=== PATIENT | male | born 1945 | race Caucasian/White ===

== ENCOUNTER 2018-11-21 09:00 | Inpatient (IN) | payer OTHER ==
[~2018-11-21] VITALS: Ht 177.8 cm; Wt 99.4 kg
[~2018-11-21 09:00] MED LIST: LISI5 PO; SILENOR6 MG PO
[2018-11-21] MEDS ORDERED: **INCOMPLETE MED REC (13:09)
[2018-11-21] MEDS ORDERED: SYNTHROID112 MCG PO (13:23)
[2018-11-21] MEDS ORDERED: AMLO5 PO (13:23)
[2018-11-21] MEDS ORDERED: Aspirin EC81 MG PO (13:24)
[2018-11-21] MEDS ORDERED: Omeprazole20 M1 PO (13:25)
[2018-11-21] MEDS ORDERED: ZOLP12.5 PO (13:26)
[2018-11-21] MEDS ORDERED: TRAM50 PO (13:27)
[2018-11-21] MEDS ORDERED: Fish Oil 10001000 MG PO (13:27)
[2018-11-21] MEDS ORDERED: CHOL10002 PO (13:28)
[2018-11-21] MEDS ORDERED: POTASSIUM GLUC500 MG PO (13:29)
[2018-11-21] MEDS ORDERED: LOSA25 PO (13:34)
--- NOTE | 2018-11-21 19:19 | NUR ---
END OF SHIFT PT HAS HAD NO CHANGES TO THE ASSESSMENT, VSS, PT IN NO PAIN PT ABLE TO AMBULATE WITH SOME SOB, PT EDUCATED ON THE NEED TO CALL THE RN FOR ASSISSTANCE, PT IS TO BE NPO AT MIDNIGHT
[2018-11-22 02:50] LABS: BASOPHILS ABSOLUTE AUTO 0.04 K/mm3 (0.00-0.23); BASOPHILS PERCENT AUTO 1 % (0-2); EOSINOPHILS ABSOLUTE AUTO 0.11 K/mm3 (0.00-0.68); EOSINOPHILS PERCENT AUTO 1 % (0-6); Hematocrit 38.7 % (37.0-53.0); Hemoglobin 12.9 g/dL (13.5-17.5); IMMATURE GRAN ABSOLUTE AUTO 0.02 K/mm3 (0.00-0.10); IMMATURE GRAN PERCENT AUTO 0 % (0-1); LYMPHOCYTES ABSOLUTE AUTO 1.64 K/mm3 (0.84-5.20); LYMPHOCYTES PERCENT AUTO 21 % (21-46); MONOCYTES ABSOLUTE AUTO 0.79 K/mm3 (0.16-1.47); MONOCYTES PERCENT AUTO 10 % (4-13); Mean Corpuscular HGB 34.3 pg (26.0-34.0); Mean Corpuscular HGB Conc 33.3 g/dL (31.5-36.5); Mean Corpuscular Volume 103 fL (80-100); Mean Platelet Volume 10.1 fL (9.1-12.4); NEUTROPHILS ABSOLUTE AUTO 5.23 K/mm3 (1.96-9.15); NEUTROPHILS PERCENT AUTO 67 % (41-73); Platelet Count 165 K/mm3 (150-400); RDW Coefficient Variation 13.8 % (11.7-14.2); RDW Standard Deviation 51.9 fL (35.1-46.3); Red Blood Cell Count 3.76 M/mm3 (4.30-5.90); White Blood Cell Count 7.83 K/mm3 (4.00-11.30)
[2018-11-22 03:22] LABS: Albumin, Blood 2.9 g/dL (3.4-5.0); Albumin/Globulin Ratio 0.9 (0.8-1.8); Bilirubin, Total 1.3 mg/dL (0.1-1.0); Bun/Creatinine Ratio 9.5 (12.0-20.0); Calcium, Blood 8.2 mg/dL (8.5-10.1); Creatine Kinase MB 2.4 ng/mL (0.0-3.6); Creatine Kinase MB Index 2.5 (0.0-4.0); Creatinine, Blood 1.37 mg/dL (0.60-1.20); Globulin, Blood 3.1 g/dL (2.2-4.0); Magnesium, Blood 1.8 mg/dL (1.6-2.4); Potassium, Blood 3.3 mmol/L (3.5-5.5); Troponin I 0.255 ng/mL (0.000-0.040)
--- NOTE | 2018-11-22 05:33 | NUR ---
SHIFT SUMMARY PATIENT PLEASENT AND COOPERATIVE THROUGHOUT THE NIGHT WITH NO COMPLAINTS OF PAIN OR DISCOMFORT. PATIENT APPEARED TO SLEEP WELL THROUGHOUT THE NIGHT. PATIENT STATED THAT HE FEELS HE SLEPT, "REALLY GOOD" LAST NIGHT. PATIENT USED HIS HOME CPAP THROUGHOUT THE NIGHT, CONTINUOUS BIOX IN PLACE THROUGHOUT THE NIGHT. PATIENT CONTINUES TO USE 2L VIA N/C. PATIENT ABLE TO AMBULATE WELL INTO THE BATHROOM WITH SBA. WILL CONTINUE TO MONITOR PATIENT AND REPORT TO ONCOMING RN.
--- NOTE | 2018-11-22 14:27 | NUR ---
Spiritual care visit conducted. Patient was sitting on a chair in his room and alert when I entered the room. I introduced myself and patient welcomed me in. Patient told me about his upcoming surgery and his axiousness about it. While we were talking patient's , Zora, entered the room. Patient then annouced that there were a few tasks that he needed to complete before the surgery and so I asked permission to pray with patient and Zora. With an overwhelming "Yes," I proceeded to pray. Patient and spouse expressed much gratitude as I left the room.
--- NOTE | 2018-11-22 16:25 | NUR ---
PER DR.ISTRATE SARMIENTO TO TURN IV FLUID DOWN TO 50 ML/HR.
--- NOTE | 2018-11-22 17:44 | NUR ---
NOTIFIED PATIENT HEART RATE HAS BEEN 90-110 AND DTSTALIC 80'S TO 102. PATIENT ANXIOUS. ORDERED LABETOLOL 10 MY IV ONCE.
--- NOTE | 2018-11-22 18:45 | NUR ---
PATIENT BACK IN ROOM AROUND 1605. AWARE NEEDED TO LIE FLAT. IV DECREASED TO 50ML/HR PER . URINAL PLACED BETWEEN LEGS IN CASE HAD TO USE. AT 1815 PATIENT HEAD OF BED AT ABOUT 45 DEGREES AND TOLERATED WELL. ALERT AND ORIENTED. ON 2 LPM OXYGEN VIA N/C. HAS OWN CPAP. DENIES ANY PAIN. BED IN LOW POSITION. CALL LIGHT WITHIN REACH. WILL CONTINUE TO MONITOR.
--- NOTE | 2018-11-22 18:49 | NUR ---
PATIENT GRANTS PERMISSION FOR STUDENT NURSE RAH RUIZ TO PROVIDE CARE ON 11/22/18.
--- NOTE | 2018-11-22 18:55 | NUR ---
PATIENT GRANTS PERMISSION FOR STUDENT NURSE RAH RUIZ TO PROVIDE CARE ON 11/22/18.
[2018-11-23 04:35] LABS: Alanine Aminotransfer (ALT/SGP 20 U/L (12-78); Albumin, Blood 2.9 g/dL (3.4-5.0); Albumin/Globulin Ratio 0.9 (0.8-1.8); Alk Phos 74 U/L (50-136); Anion Gap 10 mmol/L (6-16); Aspartate Aminotrans (AST/SGOT 16 U/L (12-37); Bilirubin, Total 1.2 mg/dL (0.1-1.0); Blood Urea Nitrogen 11 mg/dL (8-24); CO2, Blood 23 mmol/L (21-32); Calcium, Blood 8.2 mg/dL (8.5-10.1); Chloride, Blood 107 mmol/L (98-108); Creatinine, Blood 1.22 mg/dL (0.60-1.20); Globulin, Blood 3.1 g/dL (2.2-4.0); Glomerular Filtration Rate >60 (60-); Glucose, Blood 101 mg/dL (70-99); Potassium, Blood 3.5 mmol/L (3.5-5.5); Sodium, Blood 140 mmol/L (136-145); Troponin I 0.143 ng/mL (0.000-0.040)
--- NOTE | 2018-11-23 07:38 | NUR ---
SHIFT SUMMARY PATIENT PLEASENT AND COOPERATIVE THROUGHOUT THE NIGHT. PATIENT APPEARED TO SLEEP WELL THROUGHOUT MOST OF THE NIGHT. HOME CPAP IN PLACE. PATIENT REFUSED THE CONTINUOUS BIOX, REFUSAL FORM SIGNED AND IN CHART. PATIENT'S RIGHT GROIN SITE CONTINUES TO HAVE NO SIGNS OF BLEEDING OR HEMATOMA FORMATION. IV FLUIDS RUNNING PER ORDERS. VITAL SIGNS CHARTED. REPORT GIVEN TO ONCOMING RN.
--- NOTE | 2018-11-23 08:00 | NUR ---
pt up to shower, he is doing ok per pt. no complaints. a/ox3, pleasant and cooperative with care, follows commands well, denies pain, or sob, lungs are clear in upper hernandez, dim in bases, resp even and unlabored, is on r/a, no cough noted, hrr, tele in place running st with pvc's, 2+ edema noted to b/l le, ppp+1, cap refill <3sec, vs stable, afebrile, iv site is clear and patent, btx4, abd round soft nontender, voids without diff, skin has cath site to right groin, site is clear and soft with dressing intact, scarlett yepeza, call light in reach.
--- NOTE | 2018-11-23 12:40 | NUR ---
pt has visitor in room, he is having a conversation with him will be going down for ct of his chest abd pelvis this afternoon. call light in reach.
--- NOTE | 2018-11-23 14:01 | NUR ---
Spiritual care visit conducted. Patient was sitting up in bed and alert when I entered the room. Patient is known to me from prior visits. Patient shared about his upcoming scans that ron help determine if his recent surgery was successful. Patient shared his concerns but mentioned that he was hopeful. Patient shared about his esther, his family and and his cuurent interests. I listened empathically, I reinforced helpful attitudes and practices and normalized his experience. Patient responded well to all interventions and expressed gratitude for my time and care.
--- NOTE | 2018-11-23 18:49 | NUR ---
PT HAS HAD AN UNEVENTFUL DAY, SHOWER THIS AM, NO ACUTE CHANGES, HE THOUGHT HE MIGHT GO HOME TODAY, BUT DR. TYLER SAID ONE MORE DAY. PT OK WITH THIS. CALL LIGHT IN REACH.
[2018-11-24 05:10] LABS: BASOPHILS ABSOLUTE AUTO 0.03 K/mm3 (0.00-0.23); BASOPHILS PERCENT AUTO 1 % (0-2); EOSINOPHILS ABSOLUTE AUTO 0.13 K/mm3 (0.00-0.68); EOSINOPHILS PERCENT AUTO 2 % (0-6); Hematocrit 41.7 % (37.0-53.0); Hemoglobin 13.9 g/dL (13.5-17.5); IMMATURE GRAN ABSOLUTE AUTO 0.01 K/mm3 (0.00-0.10); IMMATURE GRAN PERCENT AUTO 0 % (0-1); LYMPHOCYTES ABSOLUTE AUTO 1.55 K/mm3 (0.84-5.20); LYMPHOCYTES PERCENT AUTO 25 % (21-46); MONOCYTES ABSOLUTE AUTO 0.59 K/mm3 (0.16-1.47); MONOCYTES PERCENT AUTO 9 % (4-13); Mean Corpuscular HGB 33.8 pg (26.0-34.0); Mean Corpuscular HGB Conc 33.3 g/dL (31.5-36.5); Mean Corpuscular Volume 102 fL (80-100); Mean Platelet Volume 10.3 fL (9.1-12.4); NEUTROPHILS ABSOLUTE AUTO 3.97 K/mm3 (1.96-9.15); NEUTROPHILS PERCENT AUTO 63 % (41-73); Platelet Count 200 K/mm3 (150-400); RDW Coefficient Variation 14.2 % (11.7-14.2); RDW Standard Deviation 51.7 fL (35.1-46.3); Red Blood Cell Count 4.11 M/mm3 (4.30-5.90); White Blood Cell Count 6.28 K/mm3 (4.00-11.30)
[2018-11-24 05:28] LABS: Albumin, Blood 3.1 g/dL (3.4-5.0); Anion Gap 11 mmol/L (6-16); Blood Urea Nitrogen 10 mg/dL (8-24); Bun/Creatinine Ratio 8.1 (12.0-20.0); CO2, Blood 25 mmol/L (21-32); Calcium, Blood 8.7 mg/dL (8.5-10.1); Chloride, Blood 105 mmol/L (98-108); Creatinine, Blood 1.24 mg/dL (0.60-1.20); Glomerular Filtration Rate >60 (60-); Glucose, Blood 93 mg/dL (70-99); Phosphorus, Blood 3.7 mg/dL (2.5-4.9); Potassium, Blood 3.5 mmol/L (3.5-5.5); Sodium, Blood 141 mmol/L (136-145)
--- NOTE | 2018-11-24 06:04 | NUR ---
SHIFT SUMMARY: PATIENT RIGHT GROIN SITE C/D/I NO SIGN OF HEMATOMA NOTED, PULSES AND SENSATION INTACT. PATIENT SLEPT WELL, VSS, NO ISSUES NOTED, CALL LIGHT WITHIN REACH AND BED LOW AND LOCKED.
--- NOTE | 2018-11-24 08:10 | NUR ---
pt up to shower this am, sitting on side of bed at this time, he is indep in room, a/ox3, pleasant and cooperative with care, follows commands well, denies pain or sob, lungs are clear t/o, resp even and unlabored, no cough noted, hrr, tele in place running sr per monitor, see strip, trace edema noted to right le, 1+ to left le, ppp+1, cap refill <3sec, vs stable, afebrile, iv sites are clear and patent, btx4, abd flat soft nontender, reports reg bm's and voids without diff, skin has cath site to right groin, is soft and clear, occlusive dressing in place, maew, gait noted to be steady, kesha, call light in reach.
[2018-11-24] MEDS ORDERED: FURO20 PO (11:03)
[2018-11-24] MEDS ORDERED: METO5A PO (11:03)
[2018-11-24] MEDS ORDERED: XARELTO15 MG PO ×2 (11:04→11:32)
--- NOTE | 2018-11-24 11:54 | NUR ---
pt has been discharged to home, called in new medications to [facility], both iv's were removed intact, went over all discharge instructions with him, he verbalized understanding. visitors in room at this time, his is on her way to pick him up. he knows to put on his call light when he is ready to go.
--- NOTE | 2018-11-24 12:31 | NUR ---
pt left via wheelchair with proof coins inspector in attendence, his is here to transport him home, he took all his belongings with him.
== END 2018-11-24 12:21 | disposition home or self-care (01) | DRG 252 ==
LOC: ER 09:00 → PCU 12:30
PROVIDERS: ADMIT Family Medicine
PROC: 06H03DZ Insertion of Intraluminal Device into Inferior Vena Cava, Percutaneous Approach (ICD-10-PCS; principal; 2018-11-22)
DX: I82.402 Acute embolism and thrombosis of unspecified deep veins of left lower extremity (principal); I26.09 Other pulmonary embolism with acute cor pulmonale; N17.9 Acute kidney failure, unspecified; E87.1 Hypo-osmolality and hyponatremia; K21.9 Gastro-esophageal reflux disease without esophagitis; Z86.718 Personal history of other venous thrombosis and embolism; Z79.01 Long term (current) use of anticoagulants; I10 Essential (primary) hypertension; E87.6 Hypokalemia; E03.9 Hypothyroidism, unspecified; G47.00 Insomnia, unspecified; Z85.820 Personal history of malignant melanoma of skin
CPT/HCPCS: 36415; 37191; 71260; 74177; 80053; 80069; 82550; 82553; 83735; 83880; 84443; 84484; 85025; 93005; 93010; 93306; 93970; 94762; 96372-59; 99152; 99153; 99285-25; C1769; C1880; J1644; J1650; J2250; J3010; J3480; J7030; J7040; Q9967

== ENCOUNTER 2019-02-08 02:19 | Day surgery (SDC) | payer OTHER ==
[~2019-02-08] VITALS: Ht 177.8 cm; Wt 97.7 kg
[~2019-02-08 02:19] MED LIST changes: +**INCOMPLETE MED REC; +AMLO5 PO; +Aspirin EC81 MG PO; +CHOL10002 PO; +FURO20 PO; +Fish Oil 10001000 MG PO; +LOSA25 PO; +METO5A PO; +Omeprazole20 M1 PO; +POTASSIUM GLUC500 MG PO; +SYNTHROID112 MCG PO; +TRAM50 PO; +XARELTO15 MG PO; +ZOLP12.5 PO
--- NOTE | 2019-02-08 15:05 | NUR ---
DISCHARGE PT REMAINED A&OX3 AND DENIED ANY PAIN DURING RECOVERY. IV DC'D WITH CANULA IN TACT. R JUGULAR SITE REMAINS CDI-NO HEMATOMA NOTED-JENNIFER PATCH AND TEGADERM IN PLACE. PT AMBULATED TO RESTROOM AND DRESSED SELF INDEPENDANTLY. DISCHARGE EDUCATION GIVEN BY DENILSON Lopez RN. PT STATED THE UNDERSTANDING OF THE DISCHARGE EDUCATION GIVEN AND DENIED ANY QUESTIONS AT THIS TIME. PT WHEELED OUT BY THIS NURSE.
== END 2019-02-08 15:17 | disposition home or self-care (01) ==
LOC: MHTC 02:19
DX: Z45.2 Encounter for adjustment and management of vascular access device (principal); I82.412 Acute embolism and thrombosis of left femoral vein; I82.432 Acute embolism and thrombosis of left popliteal vein; I26.99 Other pulmonary embolism without acute cor pulmonale; I10 Essential (primary) hypertension; M19.90 Unspecified osteoarthritis, unspecified site; M54.9 Dorsalgia, unspecified; G89.29 Other chronic pain; G47.33 Obstructive sleep apnea (adult) (pediatric); E78.5 Hyperlipidemia, unspecified; Z79.82 Long term (current) use of aspirin; K21.9 Gastro-esophageal reflux disease without esophagitis; Z79.899 Other long term (current) drug therapy
CPT/HCPCS: 37193; 99152; 99153; C1769; C1773; C1894; J1644; J2250; J3010; J7030; J7040; Q9967

== ENCOUNTER 2019-05-22 06:34 | Day surgery (SDC) | payer OTHER ==
[~2019-05-22] VITALS: Ht 173 cm; Wt 90.6 kg
[~2019-05-22 06:34] MED LIST changes: +ASPI81CH PO; +DONE10 PO; +HYDR1TAB94 PO
--- NOTE | 2019-05-22 08:23 | NUR ---
"DAY SURGERY RN | ADMIT VSS. A/O. Steady on feet. Belongings placed under bed. Ring placed in belongings bag, patient saw this RN place it there. Taken back to OR. No issues."
--- NOTE | 2019-05-22 10:29 | NUR ---
"DAY SURGERY RN | DISCHARGE VSS. A/O. DENIES PAIN AND NAUSEA. DISCHARGE INSTRUCTIONS AND RX GIVEN TO PATIENT. DENIES FURTHER QUESTIONS. IS RIDE HOME. IV D/C'ED WITHOUT ISSUE. PATIENT ADVISED TO RESTART [facility] PER DR. MENDIOLA ORDER. TAKEN IN WHEELCHAIR TO FRONT ENTRANCE BY VOLUNTEER. ALL BELONGINGS RETURNED TO PATIENT. NO ISSUES."
== END 2019-05-22 23:13 | disposition home or self-care (01) ==
LOC: ORSCMMR 06:34 → ORD 08:15 → ORSCMMR 23:13
PROVIDERS: Surgery
PROC: 0YU60JZ Supplement Left Inguinal Region with Synthetic Substitute, Open Approach (ICD-10-PCS; principal; 2019-05-22 08:15)
DX: K40.90 Unilateral inguinal hernia, without obstruction or gangrene, not specified as recurrent (principal); I10 Essential (primary) hypertension; Z79.899 Other long term (current) drug therapy
CPT/HCPCS: C1781; J0690; J1100; J2250; J2370; J2405; J2704; J3010; J7120

== ENCOUNTER → 2019-06-20 | Outpatient (CLI) | payer OTHER ==
[2019-06-20 12:41] LABS: Adenovirus F 40/41 Not Detected (NOT DETECT); Astrovirus Not Detected (NOT DETECT); Campylobacter Sp Not Detected (NOT DETECT); Cryptosporidium Not Detected (NOT DETECT); Cyclospora Cayetanensis Not Detected (NOT DETECT); E. Coli O157 Not Detected (NOT DETECT); Entamoeba Histolytica Not Detected (NOT DETECT); Enteroaggregative E. coli-EAEC Not Detected (NOT DETECT); Enteropathogenic E. coli-EPEC Not Detected (NOT DETECT); Enterotoxigenic E. coli-ETEC Not Detected (NOT DETECT); Giardia Lamblia Not Detected (NOT DETECT); Norovirus GI/GII Not Detected (NOT DETECT); Plesiomonas Shigelloides Not Detected (NOT DETECT); Rotavirus A Not Detected (NOT DETECT); Salmonella Sp Not Detected (NOT DETECT); Sapovirus Not Detected (NOT DETECT); Shiga Toxin-prod E. coli-STEC Not Detected (NOT DETECT); Shigella/Enteroin E. coli-EIEC Not Detected (NOT DETECT); Vibrio Cholerae Not Detected (NOT DETECT); Vibrio Sp Not Detected (NOT DETECT); Yersinia Enterocolitica Not Detected (NOT DETECT)
== END | disposition home or self-care (01) ==
LOC: LAB 11:04 → LAB SHORT 11:04 → LAB FUT 06-11 07:35
PROVIDERS: Student in an Organized Health Care Education/Training Program
DX: R19.7 Diarrhea, unspecified (principal)
CPT/HCPCS: 0097U

== ENCOUNTER 2019-08-12 09:41 | Day surgery (SDC) | payer OTHER ==
[~2019-08-12] VITALS: Ht 177.8 cm; Wt 91.4 kg
[~2019-08-12 09:41] MED LIST changes: +ONDA4 PO; +SINEMET 25-1001 EACH
--- NOTE | 2019-08-12 10:30 | NUR ---
08/12/19 1030 Umm Madrigal 1 TRY HAND NO FLASH 2 TRY UPPER ARM RIGHT MISS 3 AC GOOD RIGHT 4 GOOD WRIST RIGHT
== END 2019-08-12 12:00 | disposition home or self-care (01) ==
LOC: ORSCSDS 09:41
PROVIDERS: Student in an Organized Health Care Education/Training Program
PROC: 0DB98ZX Excision of Duodenum, Via Natural or Artificial Opening Endoscopic, Diagnostic (ICD-10-PCS; principal; 2019-08-12 11:00)
PROC: 0DJD8ZZ Inspection of Lower Intestinal Tract, Via Natural or Artificial Opening Endoscopic (ICD-10-PCS; principal; 2019-08-12 11:00)
PROC: 0DB58ZX Excision of Esophagus, Via Natural or Artificial Opening Endoscopic, Diagnostic (ICD-10-PCS; principal; 2019-08-12 11:00)
PROC: 0DB68ZX Excision of Stomach, Via Natural or Artificial Opening Endoscopic, Diagnostic (ICD-10-PCS; principal; 2019-08-12 11:00)
DX: K62.5 Hemorrhage of anus and rectum (principal); R19.7 Diarrhea, unspecified; Z86.010 Personal history of colon polyps; K29.80 Duodenitis without bleeding; K29.70 Gastritis, unspecified, without bleeding; K22.70 Barrett's esophagus without dysplasia; I10 Essential (primary) hypertension; G47.33 Obstructive sleep apnea (adult) (pediatric); Z79.899 Other long term (current) drug therapy; Z79.82 Long term (current) use of aspirin
CPT/HCPCS: 88305; 88312; 88342; J2704; J7120

== ENCOUNTER 2019-09-17 06:39 | Emergency (ER) | payer OTHER ==
[~2019-09-17] VITALS: Ht 177.8 cm; Wt 86.2 kg
[~2019-09-17 06:39] MED LIST changes: -ASPI81CH PO; +Aspir 8181 MG PO; -CHOL10002 PO; -SINEMET 25-1001 EACH; +Sinemet 25-1001 EACH PO; +THERA-D2000 UNIT PO; +XARELTO20 MG PO
[2019-09-17 08:36] LABS: BASOPHILS ABSOLUTE AUTO 0.03 K/mm3 (0.00-0.23); BASOPHILS PERCENT AUTO 0 % (0-2); EOSINOPHILS PERCENT AUTO 0 % (0-6); Hematocrit 38.5 % (37.0-53.0); Hemoglobin 13.1 g/dL (13.5-17.5); IMMATURE GRAN ABSOLUTE AUTO 0.01 K/mm3 (0.00-0.10); IMMATURE GRAN PERCENT AUTO 0 % (0-1); LYMPHOCYTES ABSOLUTE AUTO 1.81 K/mm3 (0.84-5.20); LYMPHOCYTES PERCENT AUTO 26 % (21-46); MONOCYTES ABSOLUTE AUTO 1.07 K/mm3 (0.16-1.47); MONOCYTES PERCENT AUTO 15 % (4-13); Mean Corpuscular HGB 35.5 pg (26.0-34.0); Mean Corpuscular Volume 104 fL (80-100); Mean Platelet Volume 10.9 fL (9.1-12.4); NEUTROPHILS ABSOLUTE AUTO 4.12 K/mm3 (1.96-9.15); NEUTROPHILS PERCENT AUTO 59 % (41-73); Platelet Count 199 K/mm3 (150-400); RDW Coefficient Variation 12.7 % (11.7-14.2); RDW Standard Deviation 49.1 fL (35.1-46.3); Red Blood Cell Count 3.69 M/mm3 (4.30-5.90); White Blood Cell Count 7.04 K/mm3 (4.00-11.30)
[2019-09-17 08:52] LABS: Alanine Aminotransfer (ALT/SGP 143 U/L (12-78); Albumin, Blood 3.5 g/dL (3.4-5.0); Albumin/Globulin Ratio 0.9 (0.8-1.8); Alk Phos 123 U/L (50-136); Anion Gap 9 mmol/L (6-16); Aspartate Aminotrans (AST/SGOT 100 U/L (12-37); Bilirubin, Total 2.5 mg/dL (0.1-1.0); Blood Urea Nitrogen 32 mg/dL (8-24); Bun/Creatinine Ratio 30.5 (12.0-20.0); CO2, Blood 29 mmol/L (21-32); Calcium, Blood 9.8 mg/dL (8.5-10.1); Chloride, Blood 98 mmol/L (98-108); Creatinine, Blood 1.05 mg/dL (0.60-1.20); Globulin, Blood 4.1 g/dL (2.2-4.0); Glomerular Filtration Rate >60 (60-); Glucose, Blood 172 mg/dL (70-99); Potassium, Blood 3.4 mmol/L (3.5-5.5); Sodium, Blood 136 mmol/L (136-145); Total Protein, Blood 7.6 g/dL (6.4-8.2); Troponin I 0.031 ng/mL (0.000-0.040)
[2019-09-17 11:00] LABS: Source, Urine Clean Catch
[2019-09-17 11:02] LABS: Bilirubin, Urine Neg (Neg); Blood, Urine 1+ (Neg); Glucose Qualitative, Urine Neg (Neg); Ketones, Urine 2+ (Neg); Leukocyte Esterase, Urine 1+ (Neg); Nitrite, Urine Neg (Neg); Protein, Urine 2+ (Neg); Specific Gravity, Urine 1.005 (1.003-1.022); Urobilinogen, Urine 2+ (Normal); pH, Urine 6.5 (5.0-8.0)
[2019-09-17 11:08] LABS: Appearance, Urine Hazy (Clear); Color, Urine Yellow (P-Yellow)
[2019-09-17 11:10] LABS: Bacteria Few /hpf; Squamous Epithelial Cells Rare /hpf (Few)
== END 2019-09-17 14:25 | disposition home or self-care (01) ==
LOC: ER 06:39
PROVIDERS: Emergency Medicine
DX: R11.2 Nausea with vomiting, unspecified (principal); E86.0 Dehydration; R53.1 Weakness; I10 Essential (primary) hypertension
CPT/HCPCS: 36415; 74177; 80053; 81001; 82140; 83690; 83735; 84443; 84484; 85025; 87086; 93005; 93010; 96374-59; 99284-25; J2405; J7120; Q9967

== ENCOUNTER 2019-09-19 16:17 | Emergency (ER) | payer OTHER ==
[~2019-09-19] VITALS: Ht 177.8 cm; Wt 87.5 kg
[2019-09-19 17:03] LABS: BASOPHILS ABSOLUTE AUTO 0.06 K/mm3 (0.00-0.23); BASOPHILS PERCENT AUTO 1 % (0-2); EOSINOPHILS ABSOLUTE AUTO 0.13 K/mm3 (0.00-0.68); EOSINOPHILS PERCENT AUTO 2 % (0-6); Hematocrit 38.3 % (37.0-53.0); Hemoglobin 12.9 g/dL (13.5-17.5); IMMATURE GRAN ABSOLUTE AUTO 0.01 K/mm3 (0.00-0.10); IMMATURE GRAN PERCENT AUTO 0 % (0-1); LYMPHOCYTES ABSOLUTE AUTO 2.41 K/mm3 (0.84-5.20); LYMPHOCYTES PERCENT AUTO 44 % (21-46); MONOCYTES ABSOLUTE AUTO 0.36 K/mm3 (0.16-1.47); MONOCYTES PERCENT AUTO 7 % (4-13); Mean Corpuscular HGB 35.6 pg (26.0-34.0); Mean Corpuscular HGB Conc 33.7 g/dL (31.5-36.5); Mean Corpuscular Volume 106 fL (80-100); Mean Platelet Volume 10.3 fL (9.1-12.4); NEUTROPHILS ABSOLUTE AUTO 2.47 K/mm3 (1.96-9.15); NEUTROPHILS PERCENT AUTO 45 % (41-73); Platelet Count 193 K/mm3 (150-400); RDW Coefficient Variation 12.9 % (11.7-14.2); RDW Standard Deviation 50.7 fL (35.1-46.3); Red Blood Cell Count 3.62 M/mm3 (4.30-5.90); White Blood Cell Count 5.44 K/mm3 (4.00-11.30)
[2019-09-19 17:22] LABS: Albumin, Blood 3.5 g/dL (3.4-5.0); Albumin/Globulin Ratio 0.9 (0.8-1.8); Bilirubin, Total 1.2 mg/dL (0.1-1.0); Calcium, Blood 9.7 mg/dL (8.5-10.1); Creatinine, Blood 1.6 mg/dL (0.60-1.20); Globulin, Blood 3.8 g/dL (2.2-4.0); Potassium, Blood 3.1 mmol/L (3.5-5.5); Total Protein, Blood 7.3 g/dL (6.4-8.2)
[2019-09-19 18:25] LABS: Source, Urine Clean Catch
[2019-09-19 18:28] LABS: Bilirubin, Urine Neg (Neg); Blood, Urine 1+ (Neg); Glucose Qualitative, Urine Neg (Neg); Ketones, Urine Neg (Neg); Leukocyte Esterase, Urine 1+ (Neg); Nitrite, Urine Neg (Neg); Protein, Urine Neg (Neg); Urobilinogen, Urine 1+ (Normal)
[2019-09-19 18:35] LABS: International Normalized Ratio 1.08; Prothrombin Time Results 11.4 Sec (9.7-11.5)
[2019-09-19 18:37] LABS: Appearance, Urine Clear (Clear); Color, Urine Yellow (P-Yellow)
[2019-09-19 18:42] LABS: Free Thyroxine 0.67 ng/dL (0.70-1.60); Troponin I <0.015 ng/mL (0.000-0.040)
[2019-09-19 18:44] LABS: Triiodothyronine, Free 1.47 pg/mL (2.18-3.98)
[2019-09-19 18:45] LABS: Bacteria Few /hpf; Squamous Epithelial Cells Few /hpf (Few)
[2019-09-19 19:06] LABS: Influenza A Negative (NEGATIVE); Influenza B Negative (NEGATIVE)
== END 2019-09-19 20:27 | disposition home or self-care (01) ==
LOC: ER 16:17
PROVIDERS: Emergency Medicine; Physician Assistant
DX: E86.0 Dehydration (principal); E87.6 Hypokalemia; I10 Essential (primary) hypertension; Z79.899 Other long term (current) drug therapy
CPT/HCPCS: 36415; 71046; 71260; 80053; 81001; 82140; 83735; 83880; 84439; 84443; 84481; 84484; 85025; 85610; 85730; 87086; 87804; 93005; 93010; 96360-59; 99284-25; J7030; Q9967

== ENCOUNTER 2019-09-22 14:14 | Inpatient (IN) | payer OTHER ==
[~2019-09-22] VITALS: Ht 177.8 cm; Wt 99.8 kg
[2019-09-22 14:37] LABS: BASOPHILS ABSOLUTE AUTO 0.05 K/mm3 (0.00-0.23); BASOPHILS PERCENT AUTO 1 % (0-2); EOSINOPHILS ABSOLUTE AUTO 0.14 K/mm3 (0.00-0.68); EOSINOPHILS PERCENT AUTO 2 % (0-6); Hematocrit 38.6 % (37.0-53.0); Hemoglobin 12.7 g/dL (13.5-17.5); IMMATURE GRAN ABSOLUTE AUTO 0.01 K/mm3 (0.00-0.10); IMMATURE GRAN PERCENT AUTO 0 % (0-1); LYMPHOCYTES ABSOLUTE AUTO 3.25 K/mm3 (0.84-5.20); LYMPHOCYTES PERCENT AUTO 49 % (21-46); MONOCYTES ABSOLUTE AUTO 0.64 K/mm3 (0.16-1.47); MONOCYTES PERCENT AUTO 10 % (4-13); Mean Corpuscular HGB 34.7 pg (26.0-34.0); Mean Corpuscular HGB Conc 32.9 g/dL (31.5-36.5); Mean Corpuscular Volume 106 fL (80-100); Mean Platelet Volume 10.1 fL (9.1-12.4); NEUTROPHILS ABSOLUTE AUTO 2.57 K/mm3 (1.96-9.15); NEUTROPHILS PERCENT AUTO 39 % (41-73); Platelet Count 193 K/mm3 (150-400); RDW Standard Deviation 50.7 fL (35.1-46.3); Red Blood Cell Count 3.66 M/mm3 (4.30-5.90); White Blood Cell Count 6.66 K/mm3 (4.00-11.30)
[2019-09-22 14:52] LABS: International Normalized Ratio 0.96; Prothrombin Time Results 10.2 Sec (9.7-11.5)
[2019-09-22 15:30] LABS: Alanine Aminotransfer (ALT/SGP 57 U/L (12-78); Albumin, Blood 3.3 g/dL (3.4-5.0); Albumin/Globulin Ratio 0.9 (0.8-1.8); Alk Phos 115 U/L (50-136); Anion Gap 8 mmol/L (6-16); Aspartate Aminotrans (AST/SGOT 157 U/L (12-37); Bilirubin, Total 0.7 mg/dL (0.1-1.0); Blood Urea Nitrogen 14 mg/dL (8-24); Bun/Creatinine Ratio 9.2 (12.0-20.0); CO2, Blood 32 mmol/L (21-32); Calcium, Blood 8.9 mg/dL (8.5-10.1); Chloride, Blood 98 mmol/L (98-108); Creatinine, Blood 1.52 mg/dL (0.60-1.20); Ethanol (Alcohol), Blood, Med 311 mg/dL; Globulin, Blood 3.6 g/dL (2.2-4.0); Glomerular Filtration Rate 48 (60-); Glucose, Blood 83 mg/dL (70-99); Potassium, Blood 3.7 mmol/L (3.5-5.5); Sodium, Blood 138 mmol/L (136-145); Total Protein, Blood 6.9 g/dL (6.4-8.2); Troponin I <0.015 ng/mL (0.000-0.040)
[2019-09-22] MEDS ORDERED: AMLO10 PO (17:06)
[2019-09-22] MEDS ORDERED: POTASSIUM GLUCO90 MG PO (17:06)
--- NOTE | 2019-09-22 19:21 | NUR ---
ADMISSION: REPORT RECEIVED FROM CONRADO Rocha RN. PT ARRIVED TO ICU-14 VIA [facility] [place] AT APPROX 1835. TX FROM GURNEY TO BED W/ 4 STAFF ASSIST. C-COLLAR IN PLACE, PT IS AWAKE, ASKING QUESTIONS REPEATEDLY & UNABLE TO DESCRIBE EVENTS OF THIS AFTERNOON BUT IS DETAILING JOB FROM 3+ YRS AGO TO THIS RN. PT HAS BEEN SETTLED COMFORTABLY IN BED & REPORT HAS BEEN GIVEN TO GILMA Alexander RN TO ASSUME CARE.
[2019-09-22 20:37] LABS: Source, Urine Catheter
[2019-09-22 20:42] LABS: Bilirubin, Urine Neg (Neg); Blood, Urine 1+ (Neg); Glucose Qualitative, Urine Neg (Neg); Ketones, Urine Neg (Neg); Leukocyte Esterase, Urine Neg (Neg); Nitrite, Urine Neg (Neg); Protein, Urine Neg (Neg); Urobilinogen, Urine NORM (Normal)
[2019-09-22 20:48] LABS: Appearance, Urine Clear (Clear); Color, Urine Yellow (P-Yellow); White Blood Cells, Urine 0-2 /hpf (0-5)
[2019-09-22 20:49] LABS: Bacteria Few /hpf; Hyaline Casts 0-2 /lpf (0-2); Mucus Light (0-Heavy); Squamous Epithelial Cells Not Seen /hpf (Few)
[2019-09-23 03:50] LABS: BASOPHILS ABSOLUTE AUTO 0.04 K/mm3 (0.00-0.23); BASOPHILS PERCENT AUTO 1 % (0-2); EOSINOPHILS ABSOLUTE AUTO 0.07 K/mm3 (0.00-0.68); EOSINOPHILS PERCENT AUTO 1 % (0-6); Hematocrit 35.4 % (37.0-53.0); Hemoglobin 12.1 g/dL (13.5-17.5); IMMATURE GRAN ABSOLUTE AUTO 0.02 K/mm3 (0.00-0.10); IMMATURE GRAN PERCENT AUTO 0 % (0-1); LYMPHOCYTES PERCENT AUTO 17 % (21-46); MONOCYTES ABSOLUTE AUTO 0.84 K/mm3 (0.16-1.47); MONOCYTES PERCENT AUTO 11 % (4-13); Mean Corpuscular HGB 35.4 pg (26.0-34.0); Mean Corpuscular HGB Conc 34.2 g/dL (31.5-36.5); Mean Corpuscular Volume 104 fL (80-100); Mean Platelet Volume 10.3 fL (9.1-12.4); NEUTROPHILS ABSOLUTE AUTO 5.43 K/mm3 (1.96-9.15); NEUTROPHILS PERCENT AUTO 71 % (41-73); Platelet Count 173 K/mm3 (150-400); RDW Coefficient Variation 12.8 % (11.7-14.2); RDW Standard Deviation 48.8 fL (35.1-46.3); Red Blood Cell Count 3.42 M/mm3 (4.30-5.90)
[2019-09-23 04:00] LABS: Anion Gap 12 mmol/L (6-16); Blood Urea Nitrogen 13 mg/dL (8-24); Bun/Creatinine Ratio 11.6 (12.0-20.0); CO2, Blood 26 mmol/L (21-32); Calcium, Blood 8.4 mg/dL (8.5-10.1); Chloride, Blood 101 mmol/L (98-108); Creatinine, Blood 1.12 mg/dL (0.60-1.20); Glomerular Filtration Rate >60 (60-); Glucose, Blood 77 mg/dL (70-99); Potassium, Blood 3.7 mmol/L (3.5-5.5); Sodium, Blood 139 mmol/L (136-145)
--- NOTE | 2019-09-23 07:24 | NUR ---
SHIFT SUMMARY PATIENT SLEPT OFF AND ON THROUGH NIGHT. COMPLAINED OF BEING UNABLE TO URINATE FROM A LYING POSITION, OBTAINED ORDER FROM DR RIZO EARLY IN SHIFT TO INSERT MOSS CATHETER. URINE OUTPUT EXCELLENT OVER SHIFT. MENTATION REMAINED STABLE THROUGH NIGHT. CIWA WAS <8 UNTIL ABOUT 06:00, CIWA=8, GAVE 2MG IVP ATIVAN. ASSESSMENT IS CHARTED. VSS. PAIN WELL CONTROLLED WITH PRN FENTANYL, ONLY GAVE X1 DOSE ON MY SHIFT. ADMISSION ASSESSMENT COMPLETED. IT HAS BEEN A PLEASURE TAKING CARE OF THIS PATIENT.
--- NOTE | 2019-09-23 08:07 | NUR ---
ASSUMED CARE: REPORT RECEIVED FROM GILMA Alexander RN. ASSUMED CARE OF THIS PT AT APPROX 0700. ON ASSESSMENT THE PT IS A&O, PLEASANT & COOPERATIVE. HE STS HAVING DULL ACHING PAIN TO HEAD & NECK. EXTRICATION COLLAR REMAINS IN PLACE, PLANS TO SWITCH TO SOFT C-COLLAR THIS AM. CIWA SCORES CHARTED. PT ON 2L NC W/ O2 SATS > 92% ON AVG, OCCASIONAL DESATS TO 90% NOTED WHEN SLEEPING SOUNDLY. MONITOR SHOWS SR-ST, HR 90-100s, BP STABLE. PT STS HAVING DARK STLS x3 DAYS BUT HAS HAD NO STLS SINCE ADMIT. MOSS PATENT/DRAINING. SKIN OVERALL CDI. WILL CONTINUE TO MONITOR & UPDATE NEEDED.
--- NOTE | 2019-09-23 08:24 | NUR ---
DR AVINA: PROVIDER AT BEDSIDE TO EVAL PT. STS THE PT IS OKAY TO BE PCU STATUS. NOTIFIED HIM OF PT's STATEMENT OF DARK STLS THE PAST FEW DAYS. PROVIDER STS HE WOULD LIKE MOSS TO BE REMOVED. WILL CONTINUE TO MONITOR & UPDATE NEEDED.
--- NOTE | 2019-09-23 13:20 | NUR ---
[facility] Patient is lying in bed and daughter Vida steps out of the room as I go in. Patient tells me about his injury but omits the reason he fell. Patient is kind and thoughtful even while in intense pain. Patient is quiet and not very talkative and admits to being tired. I make my visit short in hopes for a better opportunity to talk later. I listen empathically and provide companionship and prayer. Patient responds well and voice appreciation for the visit. I will continue to remain available to patient and family.
--- NOTE | 2019-09-23 17:25 | NUR ---
Pt up at bedside wanting to get up and void. Assisted nursing with promoting urinal use and safety. Review with patient of his pain and needs. pt states he has had multiple surgeries he has chronic pain he [facility] He is struggling with sleep at night and increased his drinking habits. His has been out of town so has not been eating and has been drinking more and fell. He states he has tried many things for pain but nothing works. pt positioned for comfort and rn gave iv pain pain meds theraputic talk and touch. reassured pt we will get hism some rest and care and help him with a plan. Pt fianlly drifted off to sleep. ron make referral to [facility] for pain class. Will consult Brain Cheyanneg to come see him after he has withdrawn. Will
--- NOTE | 2019-09-23 18:39 | NUR ---
SHIFT SUMMARY: NO ACUTE CHANGES SINCE PRIOR UPDATES. PT CONTINUES HAVING ACHING/THROBBING PAIN TO HEAD & NECK, MEDS PER EMAR. LS ARE DIM, PT ON 2L NC W/ O2 SATS > 92% ON AVG. PT IS ENCOURAGED TO COUGH/ DEEP BREATHE HE WINCES WHEN COUGHING & DOES NOT FULLY EXPECTORATE BECAUSE OF THIS. MONITOR SHOWS SR-ST W/ HR 90-100s, BP STABLE. PT HAS POOR APPETITE BUT IS WILLING TO EAT SMALL PORTIONS & REQUESTS VANILLA ENSURE. PT VOIDS SMALL AMNTS ONLY USING URINAL, URINE IS DARK & HAS STRONG ODOR. SKIN IS UNCHANGED. WILL CONTINUE TO MONITOR & REPORT OFF TO ONCOMING RN.
--- NOTE | 2019-09-24 08:00 | NUR ---
INITIAL ASSESSMENT PATIENT ALERT AND ORIENTED X 4 THIS AM. FORGETFUL AT TIMES. PATIENT HAS FLAT AFFECT. CIWA OF 4. PATIENT WEAK BUT ABLE TO MOVE ALL EXTREMITIES. SOFT C-COLLAR IN PLACE FOR C3/4 FRACTURE. PATIENT AFEBRILE. PATIENT HAS NO COMPLAINTS OF POWER OR DISCOMFORT AT THIS TIME. PATIENT SATTING 90% AND GREATER ON RA WHILE AWAKE AND ON 2 L NC WHILE SLEEPING. LUNGS CLEAR IN UPPER LOBES AND DIMINISHED IN LOWER LOBES. PATIENT HAS OCCASIONAL, NONPRODUCTIVE COUGH. PATIENT IN SR, HR IN THE 70S. BP STABLE. PULSES STRONG. SCDS IN PLACE. PATIENT HAS POOR APPETITE. LAST BM TODAY. WNL. PATIENT HAS SCATTERED HEMATOMAS, BRUISES AND ABRASIONS FROM HIS FALL AT HOME. NS INFUSING AT 100 MLS/ HOUR. BED LOW, CALL LIGHT IN REACH. WILL CONTINUE TO MONITOR PATIENT FREQUENTLY THROUGHOUT SHIFT.
--- NOTE | 2019-09-24 10:36 | NUR ---
REPORT GIVEN TO MEDICAL FLOOR NURSE. PATIENT WILL BE TRANSFERRED TO ROOM 227. PATIENT'S ARTI CALLED. MESSAGE LEFT ON ANSWERING MACHINE THAT PATIENT WILL BE MOVED TO MEDICAL FLOOR, ROOM 227 AND TO PLEASE BRING HIS CPAP IN WHEN SHE COMES. BANANA BAG INFUSING. IV WILL BE SALINE LOCKED WHEN FINISHED. NO OTHER ACUTE CHANGES TO NOTE ON. NO COMPLAINTS AT THIS TIME.
--- NOTE | 2019-09-24 10:55 | NUR ---
PATIENT TAKEN TO SURICAL FLOOR BY PRODUCT DIRECTOR. HERE JUST PRIOR TO TRANSFER. UPDATED ON ROOM ASSIGNMENT AND STATED SHE WOULD GO HOME AND BRING IN CPAP FOR TONIGHT.
--- NOTE | 2019-09-24 11:57 | NUR ---
Spiritual care visit conducted. While patient was still in the ICU, I visited with him. Patient was gracious but guarded. He would talk about the surface level topics of his health and the people at his rastafari that are praying for him but remained silent on matters of the heart. 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 Patient is receptive to prayer. Patient got a little teary eyed during the prayer but still remained self-protected afterward. I continue to be available to patient and family.
--- NOTE | 2019-09-24 15:04 | NUR ---
Review of pt with care manger and hospitalist. Goal is outpatient pain care and pain class, Review with care manaer pt may be more responsive to out of area rehab care.
--- NOTE | 2019-09-24 15:48 | NUR ---
SHIFT SUMMARY TRANSFER RECEIVED FROM ICU @ 1100. PT A&OX3, RA WHILE AWAKE, 2L NC WHILE SLEEPING, IS BRINGING IN HOME CPAP, PLEASANT & COOPERATIVE, VSS. PAIN MANAGED WITH NORCO. SL. BED ALARM ON. GINNA PO, DENIES N&V, LOW PO INTAKE, NEEDS ENCOURAGEMENT. VOIDING WELL, BM TODAY. WILL REPORT TO ONCOMING NOC RN.
--- NOTE | 2019-09-24 19:10 | NUR ---
recvd report from previous shift RN Raissa, pt lying in bed, requests to go to the restroom, gait belt with two staff members. pt shuffle walked to the restroom. call light in reach and bed rails in place
--- NOTE | 2019-09-25 05:29 | NUR ---
shift summary: vss, no acute changes. pt remained a/o x 4, exhibited some anxiousness approx 0330, non-violent, possibly some confusion surrounding circumstance but reoriented quickly. pt tolerated PO intake, no n/v, voiding, BM today, passing flatus. pt states cervical spine pain between -07/18 this shift, medicated per dec. pt wore CPAP during sleep. pt up to bathroom with gait belt and standby assist x 3, sink sponge bath assisted by TRADE UNION SECRETARY. during sleep, SPO2 >90% while wearing CPAP desat to 87-90% withou CPAP. CIWA performed, 4.
--- NOTE | 2019-09-25 10:09 | NUR ---
DR AVINA IN TO SEE PT.
--- NOTE | 2019-09-25 13:36 | NUR ---
therapy in to see pt.
[2019-09-25] MEDS ORDERED: CHLO25 PO (14:08)
[2019-09-25] MEDS ORDERED: Norco 7.5-3251 EACH PO (14:09)
--- NOTE | 2019-09-25 16:44 | NUR ---
DISCHARGED DC'D IV, CATHETER INTACT. REVIEWED DC INSTRUCTIONS W/PATIENT AND SPOUSE. PT SEEMS RELUCTANT TO COMPLY W/DC INSTRUCTIONS. VERBALIZED IMPORTANCE OF COMPLYING W/DC INSTRUCTIONS; SPOUSE VERBALIZED UNDERSTANDING. PT LEFT UNIT IN WC W/DC INSTRUCTION AND POSSESSIONS IN HAND ACCOMPANIED BY SPOUSE.
== END 2019-09-25 16:40 | disposition home health service (06) | DRG 552 ==
LOC: ER 14:14 → ICUW 16:55 → SURS 09-24 10:34
PROVIDERS: Emergency Medicine; Internal Medicine; ADMIT Hospitalist
DX: S12.200A Unspecified displaced fracture of third cervical vertebra, initial encounter for closed fracture (principal); F10.231 Alcohol dependence with withdrawal delirium; S12.300A Unspecified displaced fracture of fourth cervical vertebra, initial encounter for closed fracture; W19.XXXA Unspecified fall, initial encounter; K21.9 Gastro-esophageal reflux disease without esophagitis; G89.29 Other chronic pain; M54.9 Dorsalgia, unspecified; G20 Parkinson's disease; I10 Essential (primary) hypertension; E03.9 Hypothyroidism, unspecified; Z86.711 Personal history of pulmonary embolism; Z79.01 Long term (current) use of anticoagulants; Z79.82 Long term (current) use of aspirin; Z79.899 Other long term (current) drug therapy
CPT/HCPCS: 36415; 51702; 70450; 71045; 72125; 80048; 80053; 81001; 84484; 85025; 85610; 85730; 93005; 93010; 94667; 94762; 96361; 96365; 97110; 97116; 97162; 97166; 97530; 97535; 99285-25; A9270; G0480; J2060; J3010; J3411; J3475; J7030; J7042

== ENCOUNTER 2020-01-28 12:15 | Emergency (ER) | payer OTHER ==
[~2020-01-28] VITALS: Ht 175.3 cm; Wt 86.2 kg
[~2020-01-28 12:15] MED LIST changes: +AMLO10 PO; +CHLO25 PO; -Fish Oil 10001000 MG PO; +Fish Oil Conc1000 MG PO; +Norco 7.5-3251 EACH PO; +POTASSIUM GLUCO90 MG PO; -THERA-D2000 UNIT PO; +Vitamin D2000 UNIT PO
[2020-01-28 13:18] LABS: BASOPHILS ABSOLUTE AUTO 0.06 K/mm3 (0.00-0.23); BASOPHILS PERCENT AUTO 0 % (0-2); EOSINOPHILS ABSOLUTE AUTO 0.01 K/mm3 (0.00-0.68); EOSINOPHILS PERCENT AUTO 0 % (0-6); Hematocrit 34.6 % (37.0-53.0); Hemoglobin 11.8 g/dL (13.5-17.5); IMMATURE GRAN ABSOLUTE AUTO 0.18 K/mm3 (0.00-0.10); IMMATURE GRAN PERCENT AUTO 1 % (0-1); LYMPHOCYTES ABSOLUTE AUTO 1.49 K/mm3 (0.84-5.20); LYMPHOCYTES PERCENT AUTO 6 % (21-46); MONOCYTES ABSOLUTE AUTO 0.75 K/mm3 (0.16-1.47); MONOCYTES PERCENT AUTO 3 % (4-13); Mean Corpuscular HGB 29.8 pg (26.0-34.0); Mean Corpuscular HGB Conc 34.1 g/dL (31.5-36.5); Mean Corpuscular Volume 87 fL (80-100); Mean Platelet Volume 10.9 fL (9.1-12.4); NEUTROPHILS ABSOLUTE AUTO 20.62 K/mm3 (1.96-9.15); NEUTROPHILS PERCENT AUTO 89 % (41-73); Platelet Count 436 K/mm3 (150-400); RDW Coefficient Variation 14.9 % (11.7-14.2); RDW Standard Deviation 46.7 fL (35.1-46.3); Red Blood Cell Count 3.96 M/mm3 (4.30-5.90); White Blood Cell Count 23.11 K/mm3 (4.00-11.30)
[2020-01-28 13:36] LABS: International Normalized Ratio 1.23
[2020-01-28 13:45] LABS: Alanine Aminotransfer (ALT/SGP 72 U/L (12-78); Albumin, Blood 1.8 g/dL (3.4-5.0); Albumin/Globulin Ratio 0.3 (0.8-1.8); Alk Phos 297 U/L (50-136); Anion Gap 7 mmol/L (6-16); Aspartate Aminotrans (AST/SGOT 84 U/L (12-37); Bilirubin, Total 1.1 mg/dL (0.1-1.0); Blood Urea Nitrogen 22 mg/dL (8-24); Bun/Creatinine Ratio 25.6 (12.0-20.0); CO2, Blood 28 mmol/L (21-32); Calcium, Blood 8.9 mg/dL (8.5-10.1); Chloride, Blood 97 mmol/L (98-108); Creatinine, Blood 0.86 mg/dL (0.60-1.20); Globulin, Blood 5.4 g/dL (2.2-4.0); Glomerular Filtration Rate >60 (60-); Glucose, Blood 113 mg/dL (70-99); Potassium, Blood 4.2 mmol/L (3.5-5.5); Sodium, Blood 132 mmol/L (136-145); Total Protein, Blood 7.2 g/dL (6.4-8.2)
[2020-01-28 14:13] LABS: Source, Urine Voided
[2020-01-28 14:16] LABS: Bilirubin, Urine Neg (Neg); Blood, Urine Neg (Neg); Glucose Qualitative, Urine Neg (Neg); Ketones, Urine 1+ (Neg); Leukocyte Esterase, Urine 1+ (Neg); Nitrite, Urine Neg (Neg); Protein, Urine 1+ (Neg); Specific Gravity, Urine 1.015 (1.003-1.022); Urobilinogen, Urine 1+ (Normal)
[2020-01-28 14:27] LABS: Appearance, Urine Clear (Clear); Color, Urine Amber (P-Yellow)
[2020-01-28 14:28] LABS: Bacteria Rare /hpf; Red Blood Cells, Urine 0-2 /hpf (0-2); Squamous Epithelial Cells Rare /hpf (Few)
[2020-01-28] MEDS ORDERED: Vibramycin100 MG PO (14:59)
== END 2020-01-28 15:42 | disposition home or self-care (01) ==
LOC: ER 12:15
PROVIDERS: Emergency Medicine
DX: J18.9 Pneumonia, unspecified organism (principal); I10 Essential (primary) hypertension; K21.9 Gastro-esophageal reflux disease without esophagitis; E03.9 Hypothyroidism, unspecified; M54.9 Dorsalgia, unspecified; G89.29 Other chronic pain; Z79.82 Long term (current) use of aspirin; Z79.899 Other long term (current) drug therapy
CPT/HCPCS: 36415; 71045; 80053; 81001; 84145; 84443; 85025; 85610; 85730; 93005; 93010; 96361; 96374; 99283-25; J2060; J7030

== ENCOUNTER 2020-01-30 18:54 | Inpatient (IN) | payer OTHER ==
[~2020-01-30] VITALS: Ht 180.3 cm; Wt 88.5 kg
[~2020-01-30 18:54] MED LIST changes: +Vibramycin100 MG PO
[2020-01-30] MEDS ORDERED: ESCI10 PO (19:04)
[2020-01-30 19:19] LABS: Hematocrit 32.9 % (37.0-53.0); Hemoglobin 11.3 g/dL (13.5-17.5); Mean Corpuscular HGB 29.6 pg (26.0-34.0); Mean Corpuscular HGB Conc 34.3 g/dL (31.5-36.5); Mean Corpuscular Volume 86 fL (80-100); Mean Platelet Volume 10.8 fL (9.1-12.4); Platelet Count 423 K/mm3 (150-400); RDW Coefficient Variation 15.3 % (11.7-14.2); RDW Standard Deviation 47.3 fL (35.1-46.3); Red Blood Cell Count 3.82 M/mm3 (4.30-5.90); White Blood Cell Count 23.34 K/mm3 (4.00-11.30)
[2020-01-30 19:41] LABS: BAND PERCENT MAN 11 % (0-8); BASOPHILS PERCENT MAN 0 % (0-2); EOSINOPHILS PERCENT MAN 0 % (0-6); LYMPHOCYTES ABSOLUTE MAN 0.46 K/mm3 (0.84-5.20); LYMPHOCYTES PERCENT MAN 2 % (21-46); MONOCYTES PERCENT MAN 0 % (4-13); NEUTROPHILS ABSOLUTE MAN 22.87 K/mm3 (1.96-9.15); SEG NEUTROPHILS PERCENT MAN 87 % (41-73); TOTAL CELLS COUNTED 100
[2020-01-30 19:47] LABS: Ethanol (Alcohol), Blood, Med <3 mg/dL; Magnesium, Blood 1.8 mg/dL (1.6-2.4); Troponin I <0.015 ng/mL (0.000-0.040)
[2020-01-30 19:49] LABS: Alanine Aminotransfer (ALT/SGP 65 U/L (12-78); Albumin, Blood 1.8 g/dL (3.4-5.0); Albumin/Globulin Ratio 0.4 (0.8-1.8); Alk Phos 424 U/L (50-136); Anion Gap 12 mmol/L (6-16); Aspartate Aminotrans (AST/SGOT 69 U/L (12-37); Bilirubin, Total 1.5 mg/dL (0.1-1.0); Blood Urea Nitrogen 23 mg/dL (8-24); Bun/Creatinine Ratio 29.6 (12.0-20.0); CO2, Blood 23 mmol/L (21-32); Calcium, Blood 8.7 mg/dL (8.5-10.1); Chloride, Blood 99 mmol/L (98-108); Creatinine, Blood 0.78 mg/dL (0.60-1.20); Globulin, Blood 4.8 g/dL (2.2-4.0); Glomerular Filtration Rate >60 (60-); Glucose, Blood 120 mg/dL (70-99); Potassium, Blood 3.5 mmol/L (3.5-5.5); Sodium, Blood 134 mmol/L (136-145); Total Protein, Blood 6.6 g/dL (6.4-8.2)
[2020-01-30 19:50] LABS: PCO2 Arterial 27.9 mmHg (35-45); PO2 Arterial 102 mmHg (80-100); pH Blood Arterial 7.59 (7.35-7.45)
[2020-01-30 20:26] LABS: Source, Urine Catheter
[2020-01-30 20:36] LABS: Appearance, Urine Clear (Clear); Bilirubin, Urine 1+ (Neg); Blood, Urine 2+ (Neg); Color, Urine Amber (P-Yellow); Glucose Qualitative, Urine Neg (Neg); Ketones, Urine Neg (Neg); Leukocyte Esterase, Urine 1+ (Neg); Nitrite, Urine Neg (Neg); Protein, Urine 2+ (Neg); Urobilinogen, Urine 1+ (Normal)
[2020-01-30 20:43] LABS: Squamous Epithelial Cells Not Seen /hpf (Few)
[2020-01-30 20:44] LABS: Amorphous Light (0-Heavy); Bacteria Mod /hpf; Hyaline Casts 0-2 /lpf (0-2); Mucus Light (0-Heavy)
[2020-01-30 21:46] LABS: Adenovirus Not Detected (NOT DETECT); Bordetella pertussis Not Detected (NOT DETECT); Chlamydophila pneumoniae Not Detected (NOT DETECT); Coronavirus 229E Not Detected (NOT DETECT); Coronavirus HKU1 Not Detected (NOT DETECT); Coronavirus NL63 Not Detected (NOT DETECT); Coronavirus OC43 Not Detected (NOT DETECT); Human Metapneumovirus Not Detected (NOT DETECT); Human Rhinovirus/Enterovirus Not Detected (NOT DETECT); Influenza A/2009-H1 Not Detected (NOT DETECT); Influenza A/H1 Not Detected (NOT DETECT); Influenza A/H3 Not Detected (NOT DETECT); Influenza B Not Detected (NOT DETECT); Mycoplasma pneumoniae Not Detected (NOT DETECT); Parainfluenza Virus 1 Not Detected (NOT DETECT); Parainfluenza Virus 2 Not Detected (NOT DETECT); Parainfluenza Virus 3 Not Detected (NOT DETECT); Parainfluenza Virus 4 Not Detected (NOT DETECT); Respiratory Syncytial Virus Not Detected (NOT DETECT)
[2020-01-31 04:08] LABS: BASOPHILS ABSOLUTE AUTO 0.06 K/mm3 (0.00-0.23); BASOPHILS PERCENT AUTO 0 % (0-2); EOSINOPHILS PERCENT AUTO 0 % (0-6); Hematocrit 25.6 % (37.0-53.0); Hemoglobin 8.6 g/dL (13.5-17.5); IMMATURE GRAN ABSOLUTE AUTO 0.32 K/mm3 (0.00-0.10); IMMATURE GRAN PERCENT AUTO 1 % (0-1); LYMPHOCYTES ABSOLUTE AUTO 1.57 K/mm3 (0.84-5.20); LYMPHOCYTES PERCENT AUTO 5 % (21-46); MONOCYTES ABSOLUTE AUTO 0.78 K/mm3 (0.16-1.47); MONOCYTES PERCENT AUTO 3 % (4-13); Mean Corpuscular HGB 29.2 pg (26.0-34.0); Mean Corpuscular HGB Conc 33.6 g/dL (31.5-36.5); Mean Corpuscular Volume 87 fL (80-100); NEUTROPHILS ABSOLUTE AUTO 27.62 K/mm3 (1.96-9.15); NEUTROPHILS PERCENT AUTO 91 % (41-73); Platelet Count 340 K/mm3 (150-400); RDW Coefficient Variation 15.3 % (11.7-14.2); RDW Standard Deviation 47.1 fL (35.1-46.3); Red Blood Cell Count 2.95 M/mm3 (4.30-5.90); White Blood Cell Count 30.35 K/mm3 (4.00-11.30)
[2020-01-31 04:30] LABS: Alanine Aminotransfer (ALT/SGP 57 U/L (12-78); Albumin, Blood 1.4 g/dL (3.4-5.0); Albumin/Globulin Ratio 0.4 (0.8-1.8); Alk Phos 273 U/L (50-136); Anion Gap 6 mmol/L (6-16); Aspartate Aminotrans (AST/SGOT 74 U/L (12-37); Bilirubin, Total 0.7 mg/dL (0.1-1.0); Blood Urea Nitrogen 20 mg/dL (8-24); Bun/Creatinine Ratio 28.1 (12.0-20.0); CO2, Blood 25 mmol/L (21-32); Calcium, Blood 7.7 mg/dL (8.5-10.1); Chloride, Blood 107 mmol/L (98-108); Creatinine, Blood 0.71 mg/dL (0.60-1.20); Globulin, Blood 3.7 g/dL (2.2-4.0); Glomerular Filtration Rate >60 (60-); Glucose, Blood 119 mg/dL (70-99); Potassium, Blood 3.3 mmol/L (3.5-5.5); Sodium, Blood 138 mmol/L (136-145); Total Protein, Blood 5.1 g/dL (6.4-8.2)
[2020-02-01 03:52] LABS: BASOPHILS ABSOLUTE AUTO 0.02 K/mm3 (0.00-0.23); BASOPHILS PERCENT AUTO 0 % (0-2); EOSINOPHILS ABSOLUTE AUTO 0.03 K/mm3 (0.00-0.68); EOSINOPHILS PERCENT AUTO 0 % (0-6); Hematocrit 27.1 % (37.0-53.0); Hemoglobin 9.3 g/dL (13.5-17.5); IMMATURE GRAN ABSOLUTE AUTO 0.14 K/mm3 (0.00-0.10); IMMATURE GRAN PERCENT AUTO 1 % (0-1); LYMPHOCYTES ABSOLUTE AUTO 1.52 K/mm3 (0.84-5.20); LYMPHOCYTES PERCENT AUTO 8 % (21-46); MONOCYTES ABSOLUTE AUTO 0.69 K/mm3 (0.16-1.47); MONOCYTES PERCENT AUTO 4 % (4-13); Mean Corpuscular HGB 29.9 pg (26.0-34.0); Mean Corpuscular HGB Conc 34.3 g/dL (31.5-36.5); Mean Corpuscular Volume 87 fL (80-100); Mean Platelet Volume 10.6 fL (9.1-12.4); NEUTROPHILS ABSOLUTE AUTO 16.85 K/mm3 (1.96-9.15); NEUTROPHILS PERCENT AUTO 88 % (41-73); Platelet Count 280 K/mm3 (150-400); RDW Coefficient Variation 15.9 % (11.7-14.2); RDW Standard Deviation 49.2 fL (35.1-46.3); Red Blood Cell Count 3.11 M/mm3 (4.30-5.90); White Blood Cell Count 19.25 K/mm3 (4.00-11.30)
[2020-02-01 04:11] LABS: Alanine Aminotransfer (ALT/SGP 14 U/L (12-78); Albumin, Blood 1.4 g/dL (3.4-5.0); Albumin/Globulin Ratio 0.4 (0.8-1.8); Alk Phos 261 U/L (50-136); Anion Gap 5 mmol/L (6-16); Aspartate Aminotrans (AST/SGOT 48 U/L (12-37); Bilirubin, Total 0.8 mg/dL (0.1-1.0); Blood Urea Nitrogen 19 mg/dL (8-24); Bun/Creatinine Ratio 28.6 (12.0-20.0); CO2, Blood 27 mmol/L (21-32); Calcium, Blood 7.6 mg/dL (8.5-10.1); Chloride, Blood 106 mmol/L (98-108); Creatinine, Blood 0.66 mg/dL (0.60-1.20); Globulin, Blood 3.6 g/dL (2.2-4.0); Glomerular Filtration Rate >60 (60-); Glucose, Blood 109 mg/dL (70-99); Phosphorus, Blood 2.5 mg/dL (2.5-4.9); Potassium, Blood 3.3 mmol/L (3.5-5.5); Sodium, Blood 138 mmol/L (136-145)
[2020-02-01 08:23] LABS: Vancomycin, Trough 16.1 ug/mL (5.0-10.0)
[2020-02-02 03:53] LABS: Hematocrit 29.8 % (37.0-53.0); Hemoglobin 9.8 g/dL (13.5-17.5); Mean Corpuscular HGB 29.2 pg (26.0-34.0); Mean Corpuscular HGB Conc 32.9 g/dL (31.5-36.5); Mean Corpuscular Volume 89 fL (80-100); Mean Platelet Volume 10.9 fL (9.1-12.4); Platelet Count 316 K/mm3 (150-400); RDW Coefficient Variation 16.1 % (11.7-14.2); RDW Standard Deviation 51.2 fL (35.1-46.3); Red Blood Cell Count 3.36 M/mm3 (4.30-5.90); White Blood Cell Count 18.09 K/mm3 (4.00-11.30)
[2020-02-02 04:09] LABS: Albumin, Blood 1.4 g/dL (3.4-5.0); Anion Gap 5 mmol/L (6-16); Blood Urea Nitrogen 14 mg/dL (8-24); Bun/Creatinine Ratio 20.4 (12.0-20.0); CO2, Blood 25 mmol/L (21-32); Calcium, Blood 7.9 mg/dL (8.5-10.1); Chloride, Blood 109 mmol/L (98-108); Creatinine, Blood 0.69 mg/dL (0.60-1.20); Glomerular Filtration Rate >60 (60-); Glucose, Blood 97 mg/dL (70-99); Phosphorus, Blood 2.5 mg/dL (2.5-4.9); Potassium, Blood 3.5 mmol/L (3.5-5.5); Sodium, Blood 139 mmol/L (136-145)
[2020-02-03 04:19] LABS: Hematocrit 29.2 % (37.0-53.0); Hemoglobin 9.5 g/dL (13.5-17.5); Mean Corpuscular HGB 29.1 pg (26.0-34.0); Mean Corpuscular HGB Conc 32.5 g/dL (31.5-36.5); Mean Corpuscular Volume 89 fL (80-100); Mean Platelet Volume 11.2 fL (9.1-12.4); Platelet Count 308 K/mm3 (150-400); RDW Coefficient Variation 16.3 % (11.7-14.2); RDW Standard Deviation 52.4 fL (35.1-46.3); Red Blood Cell Count 3.27 M/mm3 (4.30-5.90)
[2020-02-03 04:38] LABS: Alanine Aminotransfer (ALT/SGP 13 U/L (12-78); Albumin, Blood 1.4 g/dL (3.4-5.0); Albumin/Globulin Ratio 0.3 (0.8-1.8); Alk Phos 260 U/L (50-136); Anion Gap 5 mmol/L (6-16); Aspartate Aminotrans (AST/SGOT 34 U/L (12-37); Bilirubin, Direct 0.3 mg/dL (0.0-0.3); Bilirubin, Indirect 0.6 mg/dL (0.1-0.7); Bilirubin, Total 0.9 mg/dL (0.1-1.0); Blood Urea Nitrogen 12 mg/dL (8-24); Bun/Creatinine Ratio 16.1 (12.0-20.0); CO2, Blood 28 mmol/L (21-32); Calcium, Blood 8.1 mg/dL (8.5-10.1); Chloride, Blood 106 mmol/L (98-108); Creatinine, Blood 0.75 mg/dL (0.60-1.20); Globulin, Blood 4.1 g/dL (2.2-4.0); Glomerular Filtration Rate >60 (60-); Glucose, Blood 86 mg/dL (70-99); Phosphorus, Blood 3.6 mg/dL (2.5-4.9); Potassium, Blood 3.2 mmol/L (3.5-5.5); Sodium, Blood 139 mmol/L (136-145); Total Protein, Blood 5.5 g/dL (6.4-8.2)
[2020-02-04 04:13] LABS: Hematocrit 27.7 % (37.0-53.0); Hemoglobin 9.1 g/dL (13.5-17.5); Mean Corpuscular HGB 29.2 pg (26.0-34.0); Mean Corpuscular HGB Conc 32.9 g/dL (31.5-36.5); Mean Corpuscular Volume 89 fL (80-100); Mean Platelet Volume 10.9 fL (9.1-12.4); Platelet Count 302 K/mm3 (150-400); RDW Standard Deviation 50.4 fL (35.1-46.3); Red Blood Cell Count 3.12 M/mm3 (4.30-5.90); White Blood Cell Count 14.54 K/mm3 (4.00-11.30)
[2020-02-04 04:35] LABS: Albumin, Blood 1.4 g/dL (3.4-5.0); Anion Gap 6 mmol/L (6-16); Blood Urea Nitrogen 16 mg/dL (8-24); Bun/Creatinine Ratio 22.7 (12.0-20.0); CO2, Blood 28 mmol/L (21-32); Calcium, Blood 8.1 mg/dL (8.5-10.1); Chloride, Blood 105 mmol/L (98-108); Glomerular Filtration Rate >60 (60-); Glucose, Blood 110 mg/dL (70-99); Phosphorus, Blood 2.9 mg/dL (2.5-4.9); Potassium, Blood 3.5 mmol/L (3.5-5.5); Sodium, Blood 139 mmol/L (136-145)
[2020-02-04 04:36] LABS: Percent Saturation 19.5 % (20.0-50.0)
[2020-02-05 04:07] LABS: Anion Gap 5 mmol/L (6-16); Blood Urea Nitrogen 15 mg/dL (8-24); Bun/Creatinine Ratio 19.9 (12.0-20.0); CO2, Blood 28 mmol/L (21-32); Calcium, Blood 8.1 mg/dL (8.5-10.1); Chloride, Blood 105 mmol/L (98-108); Creatinine, Blood 0.75 mg/dL (0.60-1.20); Glomerular Filtration Rate >60 (60-); Glucose, Blood 96 mg/dL (70-99); Potassium, Blood 3.5 mmol/L (3.5-5.5); Sodium, Blood 138 mmol/L (136-145)
[2020-02-05] MEDS ORDERED: HYDHCL25 PO (18:04)
[2020-02-05] MEDS ORDERED: Fentanyl1 EACH TOP (18:04)
[2020-02-05] MEDS ORDERED: DICLOFENAC SOD100 G1 TOP (18:05)
[2020-02-05] MEDS ORDERED: HYDROCODONE-AC1 EAC1 PO (18:20)
[2020-02-05] MEDS ORDERED: CENTRUM SILVER1 EAC2 PO (18:21)
[2020-02-06 04:56] LABS: BASOPHILS ABSOLUTE AUTO 0.02 K/mm3 (0.00-0.23); BASOPHILS PERCENT AUTO 0 % (0-2); EOSINOPHILS ABSOLUTE AUTO 0.07 K/mm3 (0.00-0.68); EOSINOPHILS PERCENT AUTO 1 % (0-6); Hematocrit 28.2 % (37.0-53.0); Hemoglobin 9.1 g/dL (13.5-17.5); IMMATURE GRAN PERCENT AUTO 1 % (0-1); LYMPHOCYTES ABSOLUTE AUTO 1.25 K/mm3 (0.84-5.20); LYMPHOCYTES PERCENT AUTO 9 % (21-46); MONOCYTES ABSOLUTE AUTO 0.35 K/mm3 (0.16-1.47); MONOCYTES PERCENT AUTO 3 % (4-13); Mean Corpuscular HGB 29.1 pg (26.0-34.0); Mean Corpuscular HGB Conc 32.3 g/dL (31.5-36.5); Mean Corpuscular Volume 90 fL (80-100); Mean Platelet Volume 10.7 fL (9.1-12.4); NEUTROPHILS ABSOLUTE AUTO 11.61 K/mm3 (1.96-9.15); NEUTROPHILS PERCENT AUTO 87 % (41-73); Platelet Count 319 K/mm3 (150-400); RDW Coefficient Variation 16.6 % (11.7-14.2); RDW Standard Deviation 52.8 fL (35.1-46.3); Red Blood Cell Count 3.13 M/mm3 (4.30-5.90)
[2020-02-06 05:21] LABS: Alanine Aminotransfer (ALT/SGP 13 U/L (12-78); Albumin, Blood 1.5 g/dL (3.4-5.0); Albumin/Globulin Ratio 0.4 (0.8-1.8); Alk Phos 289 U/L (50-136); Anion Gap 6 mmol/L (6-16); Aspartate Aminotrans (AST/SGOT 38 U/L (12-37); Bilirubin, Total 0.7 mg/dL (0.1-1.0); Blood Urea Nitrogen 15 mg/dL (8-24); CO2, Blood 27 mmol/L (21-32); Calcium, Blood 8.2 mg/dL (8.5-10.1); Chloride, Blood 105 mmol/L (98-108); Creatinine, Blood 0.83 mg/dL (0.60-1.20); Glomerular Filtration Rate >60 (60-); Glucose, Blood 89 mg/dL (70-99); Potassium, Blood 3.9 mmol/L (3.5-5.5); Sodium, Blood 138 mmol/L (136-145); Total Protein, Blood 5.5 g/dL (6.4-8.2)
[2020-02-06 21:44] LABS: BASOPHILS ABSOLUTE AUTO 0.04 K/mm3 (0.00-0.23); BASOPHILS PERCENT AUTO 0 % (0-2); EOSINOPHILS PERCENT AUTO 0 % (0-6); Hematocrit 28.7 % (37.0-53.0); Hemoglobin 9.3 g/dL (13.5-17.5); IMMATURE GRAN ABSOLUTE AUTO 0.15 K/mm3 (0.00-0.10); IMMATURE GRAN PERCENT AUTO 1 % (0-1); LYMPHOCYTES ABSOLUTE AUTO 1.08 K/mm3 (0.84-5.20); LYMPHOCYTES PERCENT AUTO 6 % (21-46); MONOCYTES ABSOLUTE AUTO 0.27 K/mm3 (0.16-1.47); MONOCYTES PERCENT AUTO 1 % (4-13); Mean Corpuscular HGB 29.1 pg (26.0-34.0); Mean Corpuscular HGB Conc 32.4 g/dL (31.5-36.5); Mean Corpuscular Volume 90 fL (80-100); NEUTROPHILS ABSOLUTE AUTO 17.55 K/mm3 (1.96-9.15); NEUTROPHILS PERCENT AUTO 92 % (41-73); Platelet Count 288 K/mm3 (150-400); RDW Coefficient Variation 16.5 % (11.7-14.2); RDW Standard Deviation 53.1 fL (35.1-46.3); White Blood Cell Count 19.09 K/mm3 (4.00-11.30)
[2020-02-07 03:53] LABS: BASOPHILS ABSOLUTE AUTO 0.03 K/mm3 (0.00-0.23); BASOPHILS PERCENT AUTO 0 % (0-2); EOSINOPHILS ABSOLUTE AUTO 0.01 K/mm3 (0.00-0.68); EOSINOPHILS PERCENT AUTO 0 % (0-6); Hematocrit 25.4 % (37.0-53.0); Hemoglobin 8.3 g/dL (13.5-17.5); IMMATURE GRAN ABSOLUTE AUTO 0.05 K/mm3 (0.00-0.10); IMMATURE GRAN PERCENT AUTO 0 % (0-1); LYMPHOCYTES ABSOLUTE AUTO 1.36 K/mm3 (0.84-5.20); LYMPHOCYTES PERCENT AUTO 9 % (21-46); MONOCYTES ABSOLUTE AUTO 0.25 K/mm3 (0.16-1.47); MONOCYTES PERCENT AUTO 2 % (4-13); Mean Corpuscular HGB 29.4 pg (26.0-34.0); Mean Corpuscular HGB Conc 32.7 g/dL (31.5-36.5); Mean Corpuscular Volume 90 fL (80-100); Mean Platelet Volume 11.2 fL (9.1-12.4); NEUTROPHILS ABSOLUTE AUTO 14.25 K/mm3 (1.96-9.15); NEUTROPHILS PERCENT AUTO 89 % (41-73); Platelet Count 254 K/mm3 (150-400); RDW Coefficient Variation 16.7 % (11.7-14.2); RDW Standard Deviation 53.6 fL (35.1-46.3); Red Blood Cell Count 2.82 M/mm3 (4.30-5.90); White Blood Cell Count 15.95 K/mm3 (4.00-11.30)
[2020-02-07 04:10] LABS: Anion Gap 6 mmol/L (6-16); Blood Urea Nitrogen 16 mg/dL (8-24); Bun/Creatinine Ratio 17.2 (12.0-20.0); CO2, Blood 27 mmol/L (21-32); Calcium, Blood 7.8 mg/dL (8.5-10.1); Chloride, Blood 106 mmol/L (98-108); Creatinine, Blood 0.93 mg/dL (0.60-1.20); Glomerular Filtration Rate >60 (60-); Glucose, Blood 98 mg/dL (70-99); Sodium, Blood 139 mmol/L (136-145)
[2020-02-08 05:17] LABS: BASOPHILS ABSOLUTE AUTO 0.02 K/mm3 (0.00-0.23); BASOPHILS PERCENT AUTO 0 % (0-2); EOSINOPHILS ABSOLUTE AUTO 0.06 K/mm3 (0.00-0.68); EOSINOPHILS PERCENT AUTO 1 % (0-6); Hematocrit 27.4 % (37.0-53.0); Hemoglobin 8.6 g/dL (13.5-17.5); IMMATURE GRAN ABSOLUTE AUTO 0.06 K/mm3 (0.00-0.10); IMMATURE GRAN PERCENT AUTO 1 % (0-1); LYMPHOCYTES ABSOLUTE AUTO 1.96 K/mm3 (0.84-5.20); LYMPHOCYTES PERCENT AUTO 16 % (21-46); MONOCYTES ABSOLUTE AUTO 0.33 K/mm3 (0.16-1.47); MONOCYTES PERCENT AUTO 3 % (4-13); Mean Corpuscular HGB 28.8 pg (26.0-34.0); Mean Corpuscular HGB Conc 31.4 g/dL (31.5-36.5); Mean Corpuscular Volume 92 fL (80-100); Mean Platelet Volume 11.2 fL (9.1-12.4); NEUTROPHILS ABSOLUTE AUTO 10.21 K/mm3 (1.96-9.15); NEUTROPHILS PERCENT AUTO 81 % (41-73); Platelet Count 237 K/mm3 (150-400); RDW Standard Deviation 55.7 fL (35.1-46.3); Red Blood Cell Count 2.99 M/mm3 (4.30-5.90); White Blood Cell Count 12.64 K/mm3 (4.00-11.30)
[2020-02-08 14:04] LABS: Source, Urine Clean Catch
[2020-02-08 14:08] LABS: Bilirubin, Urine Neg (Neg); Blood, Urine Neg (Neg); Glucose Qualitative, Urine Neg (Neg); Ketones, Urine Neg (Neg); Leukocyte Esterase, Urine Neg (Neg); Nitrite, Urine Neg (Neg); Protein, Urine 1+ (Neg); Specific Gravity, Urine 1.025 (1.003-1.022); Urobilinogen, Urine NORM (Normal)
[2020-02-08 14:14] LABS: Appearance, Urine Clear (Clear); Color, Urine Yellow (P-Yellow)
[2020-02-12 08:33] LABS: Anion Gap 2 mmol/L (6-16); Blood Urea Nitrogen 13 mg/dL (8-24); Bun/Creatinine Ratio 19.9 (12.0-20.0); CO2, Blood 28 mmol/L (21-32); Chloride, Blood 101 mmol/L (98-108); Creatinine, Blood 0.65 mg/dL (0.60-1.20); Glomerular Filtration Rate >60 (60-); Glucose, Blood 84 mg/dL (70-99); Potassium, Blood 4.1 mmol/L (3.5-5.5); Sodium, Blood 131 mmol/L (136-145)
[2020-02-12] MEDS ORDERED: ACET325 PO (15:42)
[2020-02-12] MEDS ORDERED: Colace100 MG PO (15:43)
[2020-02-12] MEDS ORDERED: CARV6.25 PO (15:43)
[2020-02-12] MEDS ORDERED: LIDO700A20 TOP (15:44)
[2020-02-12] MEDS ORDERED: FOLI1 PO (15:44)
[2020-02-12] MEDS ORDERED: FERSU300 PO (15:44)
[2020-02-12] MEDS ORDERED: Doxazosin Mesyla4 MG PO (15:44)
[2020-02-12] MEDS ORDERED: B-1100 M1 PO (15:45)
[2020-02-12] MEDS ORDERED: SENN187 PO (15:45)
[2020-02-19] MEDS ORDERED: Feverall650 MG PR (09:17)
[2020-02-19] MEDS ORDERED: MORP20L SL (09:18)
[2020-02-19] MEDS ORDERED: Fentanyl1 EAC4 TOP (09:18)
[2020-02-19] MEDS ORDERED: Adult Glycerin1 EACH PR (09:19)
[2020-02-19] MEDS ORDERED: Haloperidol2 MG/1 ML PO (09:20)
[2020-02-19] MEDS ORDERED: LIDO700A20 TOP (09:21)
[2020-02-19] MEDS ORDERED: LORA2 PO (09:22)
[2020-02-19] MEDS ORDERED: ONDA4ODT MM (09:22)
[2020-02-19] MEDS ORDERED: Transderm-Scop1 EACH TOP (09:23)
== END 2020-02-12 15:56 | disposition home health service (06) | DRG 871 ==
LOC: ER 18:54 → PCU 22:41 → MEDS 22:41 → PCU 23:43 → MEDS 02-05 16:00 → ICUE 02-07 00:52 → MEDS 02-07 18:35
PROVIDERS: Emergency Medicine; Internal Medicine; Nurse Practitioner Acute Care; ADMIT Internal Medicine
PROC: 8E0ZXY6 Isolation (ICD-10-PCS; principal; 2020-01-30)
DX: A41.9 Sepsis, unspecified organism (principal); J96.01 Acute respiratory failure with hypoxia; G93.41 Metabolic encephalopathy; J69.0 Pneumonitis due to inhalation of food and vomit; J18.9 Pneumonia, unspecified organism; F10.239 Alcohol dependence with withdrawal, unspecified; I10 Essential (primary) hypertension; R65.20 Severe sepsis without septic shock; K21.9 Gastro-esophageal reflux disease without esophagitis; E03.9 Hypothyroidism, unspecified; G47.33 Obstructive sleep apnea (adult) (pediatric); G20 Parkinson's disease; G89.29 Other chronic pain; M54.9 Dorsalgia, unspecified; E87.6 Hypokalemia; F32.9 Major depressive disorder, single episode, unspecified; F03.90 Unspecified dementia, unspecified severity, without behavioral disturbance, psychotic disturbance, mood disturbance, and anxiety; Y90.0 Blood alcohol level of less than 20 mg/100 ml
CPT/HCPCS: 0099U; 36415; 36600; 51701; 70450; 71045; 71046; 80048; 80053; 80069; 80202; 81001; 82248; 82607; 82728; 82746; 82803; 83540; 83550; 83605; 83690; 83735; 83880; 84100; 84145; 84484; 85025; 85027; 87040; 87086; 92526; 92610; 93005; 93010; 94640; 94660; 94762; 96361; 96365; 96366; 96367; 96375; 97110; 97116; 97162; 97166; 97530; 97535; 99285-25; A9270; A9270-GY; G0480; J0456; J0696; J1940; J2060; J2405; J2543; J3370; J7030; J7042; J7050; J7120; U0002